=== PATIENT | female | born 1970 | race Hispanic/Latino ===

== ENCOUNTER 2018-08-18 18:23 | Emergency (ER) | payer OTHER ==
[2018-08-18] MEDS ORDERED: KETOROLAC TROMETHAMINE 60 MG/2 ML VIAL ONE (19:28)
== END 2018-08-18 19:45 | disposition home or self-care (01) ==
LOC: EDH 18:23
DX: M94.0 Chondrocostal junction syndrome [Tietze] (principal); I10 Essential (primary) hypertension; F41.9 Anxiety disorder, unspecified; F31.9 Bipolar disorder, unspecified
CPT/HCPCS: 71045; 96372; 99283; J1885

== ENCOUNTER 2019-06-06 17:58 | Emergency (ER) | payer SELFPAY ==
[2019-06-06] MEDS ORDERED: DIAZEPAM 5 MG TABLET ONE (18:53)
[2019-06-06] MEDS ORDERED: KETOROLAC TROMETHAMINE 60 MG/2 ML VIAL ONE (18:53)
[2019-06-06] MEDS ORDERED: LIDOCAINE 5% TOPICAL PATCH TP ONE (18:53)
== END 2019-06-06 19:47 | disposition home or self-care (01) ==
LOC: EDH 17:58
DX: M54.16 Radiculopathy, lumbar region (principal); F41.9 Anxiety disorder, unspecified; F31.9 Bipolar disorder, unspecified; I10 Essential (primary) hypertension; G43.909 Migraine, unspecified, not intractable, without status migrainosus; M19.90 Unspecified osteoarthritis, unspecified site; Z87.891 Personal history of nicotine dependence
CPT/HCPCS: 96372; 99283; J1885

== ENCOUNTER 2019-06-24 18:49 | Emergency (ER) | payer SELFPAY ==
[2019-06-24 20:08] LABS: APPEARANCE,URINE Clear (CLEAR); BILIRUBIN,URINE Negative (NEGATIVE); COLOR,URINE Yellow (YELLOW); GLUCOSE, URINE (UA) Negative (NEGATIVE); KETONES,URINE Negative (NEGATIVE); LEUKOCYTE ESTERASE ,URINE Small (NEGATIVE); NITRATE,URINE Negative (NEGATIVE); OCCULT BLOOD,URINE Negative (NEGATIVE); PROTEIN,URINE Negative (NEGATIVE)
[2019-06-24] MEDS ORDERED: SODIUM CHLORIDE 0.9% 1000ML 1,000 ML IV ONE (20:08)
[2019-06-24] MEDS ORDERED: ASPIRIN 325 MG TABLET ONE (20:10)
[2019-06-24] MEDS ORDERED: DiphenhydrAMINE HCL 50 MG/ML VIAL ONE (20:10)
[2019-06-24 20:11] LABS: HCG,QUAL RESULT NEGATIVE (NEGATIVE)
[2019-06-24 20:20] LABS: BASOPHILS % (AUTO) 0.8 % (0.0-5.0); EOSINOPHILS % (AUTO) 3.1 % (0.0-8.0); HEMATOCRIT 42.8 % (36-48); LYMPHOCYTES % (AUTO) 14.8 % (21.0-51.0); MEAN CORPUSCULAR HEMOGLOBIN 29.9 pg (27.0-33.0); MEAN CORPUSCULAR HGB CONC 33.8 g/dL (32.0-36.0); MEAN CORPUSCULAR VOLUME 88.6 fL (79-99); MONOCYTES % (AUTO) 8.2 % (3.0-13.0); NEUTROPHILS % (AUTO) 73.1 % (40.0-77.0); PLATELET COUNT (AUTO) 306 K/uL (130-400); RED BLOOD CELL COUNT(AUTO) 4.83 MIL/uL (4.00-5.50); RED CELL DISTRIBUTION WIDTH 13.3 % (11.0-15.5); WHITE BLOOD COUNT (AUTO) 11.1 K/uL (4.8-10.8)
[2019-06-24 20:24] LABS: BACTERIA,URINE Few /HPF (None Seen); MUCUS,URINE Few LPF (None Seen)
[2019-06-24 20:26] LABS: CARBON DIOXIDE 26 mmol/L (21-32); CHLORIDE 105 mmol/L (101-111); CREATININE 0.7 mg/dL (0.5-1.5); GLOMERULAR FILTR. RATE CALC 95 mL/min (>60); GLUCOSE,RANDOM 135 mg/dL (70-105); SODIUM SERUM 140 mmol/L (136-145); UREA NITROGEN, BLOOD 12 mg/dL (7-18)
[2019-06-24 20:30] LABS: INR 0.94 (0.85-1.15); PROTHROMBIN TIME 9.9 SEC (9.6-11.6)
[2019-06-24 20:31] LABS: ALANINE AMINOTRANSFERASE 71 U/L (12-78); ALBUMIN 3.2 g/dL (3.5-5.0); ASPARTATE AMINOTRANSFERASE 54 U/L (10-37); BILIRUBIN,TOTAL 0.4 mg/dL (0.2-1.0); CREATINE KINASE, TOTAL 278 U/L (21-232)
[2019-06-24 20:49] LABS: BILIRUBIN,DIRECT < 0.1 mg/dL (0.0-0.3)
[2019-06-24 20:55] LABS: B-TYPE NATRIURETIC PEPTIDE 8 pg/mL (0-100)
== END 2019-06-25 00:45 | disposition home or self-care (01) ==
LOC: EDH 18:49
DX: R07.89 Other chest pain (principal); R42 Dizziness and giddiness; R00.2 Palpitations
CPT/HCPCS: 36415; 71046; 80048; 80076; 81001; 81025; 82550 ×2; 83880; 84484 ×2; 85025; 85610; 85730; 93005 ×2; 96361; 96374; 99285; J1200; J7030

== ENCOUNTER 2019-07-17 20:15 | Emergency (ER) | payer SELFPAY ==
[2019-07-17] MEDS ORDERED: DEXAMETHASONE SOD PHOSPHATE 10MG/ML 1ML VIAL ONE (21:18)
[2019-07-17] MEDS ORDERED: ORPHENADRINE CITRATE 30 MG/ML ML ONE (21:18)
[2019-07-17] MEDS ORDERED: KETOROLAC TROMETHAMINE 60 MG/2 ML VIAL ONE (21:19)
[2019-07-17] MEDS ORDERED: DIAZEPAM 5 MG TABLET ONE (22:23)
[2019-07-17] MEDS ORDERED: LIDOCAINE 5% TOPICAL PATCH TP ONE (22:54)
== END 2019-07-18 00:09 | disposition home or self-care (01) ==
LOC: EDH 20:15
DX: M54.32 Sciatica, left side (principal); F41.9 Anxiety disorder, unspecified; F31.9 Bipolar disorder, unspecified; I10 Essential (primary) hypertension; G43.909 Migraine, unspecified, not intractable, without status migrainosus; M06.9 Rheumatoid arthritis, unspecified; Z72.0 Tobacco use
CPT/HCPCS: 96372 ×3; 99284; J1100; J1885; J2360

== ENCOUNTER 2019-09-13 10:02 | Emergency (ER) | payer OTHER ==
[2019-09-13 11:08] LABS: APPEARANCE,URINE Cloudy (CLEAR); BILIRUBIN,URINE Negative (NEGATIVE); COLOR,URINE Dark Yellow (YELLOW); GLUCOSE, URINE (UA) Negative (NEGATIVE); KETONES,URINE Negative (NEGATIVE); LEUKOCYTE ESTERASE ,URINE Negative (NEGATIVE); NITRATE,URINE Negative (NEGATIVE); OCCULT BLOOD,URINE Negative (NEGATIVE); PH,URINE 5.5 (5.0-8.0); PROTEIN,URINE Negative (NEGATIVE)
[2019-09-13] MEDS ORDERED: ORPHENADRINE CITRATE 30 MG/ML ML ONE (11:27)
[2019-09-13] MEDS ORDERED: KETOROLAC TROMETHAMINE 30MG/ML ONE (11:27)
[2019-09-13] MEDS ORDERED: LIDOCAINE 5% TOPICAL PATCH TP ONE (11:35)
[2019-09-13 11:43] LABS: BACTERIA,URINE Rare /HPF (None Seen); MUCUS,URINE Few LPF (None Seen); RBC,URINE 0-1 /HPF (0-1); SQUAMOUS EPITHELIAL CELL,UR Rare /HPF (0-2); WBC,URINE 0-1 /HPF (0-1)
== END 2019-09-13 12:15 | disposition home or self-care (01) ==
LOC: EDH 10:02
DX: M54.5 Low back pain (principal); F41.9 Anxiety disorder, unspecified; F32.9 Major depressive disorder, single episode, unspecified; I10 Essential (primary) hypertension; G43.909 Migraine, unspecified, not intractable, without status migrainosus; M19.90 Unspecified osteoarthritis, unspecified site; M06.9 Rheumatoid arthritis, unspecified; Z72.0 Tobacco use; Z98.890 Other specified postprocedural states
CPT/HCPCS: 81001; 96372 ×2; 99284; J1885; J2360

== ENCOUNTER 2021-03-16 14:28 | Inpatient (IN) | payer OTHER ==
[~2021-03-16] VITALS: Ht 149.9 cm; Wt 107.2 kg
[2021-03-16 15:14] VITALS: BP 124/81
[2021-03-16 16:11] LABS: BASOPHILS % (AUTO) 0.2 % (0.0-5.0); EOSINOPHILS % (AUTO) 1.1 % (0.0-8.0); LYMPHOCYTES % (AUTO) 23.5 % (21.0-51.0); MEAN CORPUSCULAR HEMOGLOBIN 29.9 pg (27.0-33.0); MEAN CORPUSCULAR HGB CONC 33.8 g/dL (32.0-36.0); MEAN CORPUSCULAR VOLUME 88.4 fL (79-99); MONOCYTES % (AUTO) 8.3 % (3.0-13.0); NEUTROPHILS % (AUTO) 66.7 % (40.0-77.0); PLATELET COUNT (AUTO) 227 K/uL (130-400); RED BLOOD CELL COUNT(AUTO) 5.09 MIL/uL (4.00-5.50); WHITE BLOOD COUNT (AUTO) 6.1 K/uL (4.8-10.8)
[2021-03-16 16:19] LABS: ABG BASE EXCESS 1.1 mmol/L (-2.0-3.0); ABG HCO3 24.7 mmol/L (21.0-28.0); ABG OXYGEN SATURATION 87.7 % (95.0-99.0); ABG PCO2 36 mmHg (32-45)
[2021-03-16 16:20] LABS: CREATININE 0.9 mg/dL (0.5-1.5); POTASSIUM 3.9 mmol/L (3.5-5.1)
[2021-03-16 16:25] LABS: ALBUMIN 2.9 g/dL (3.5-5.0); BILIRUBIN,TOTAL 0.5 mg/dL (0.2-1.0); TOTAL PROTEIN, SERUM 7.9 g/dL (6.0-8.3)
[2021-03-16 16:35] LABS: B-TYPE NATRIURETIC PEPTIDE < 5 pg/mL (0-100)
[2021-03-16] MEDS ORDERED: CEFTRIAXONE 1G VIAL IVP ONE (17:00)
[2021-03-16] MEDS ORDERED: ALBUTEROL INHALER 90MCG/INH IH PRN (17:00)
[2021-03-16] MEDS: BUDESONIDE 0.5 MG/2 ML INH IH SCH (17:20)
[2021-03-16] MEDS ORDERED: ACETAMINOPHEN 325 MG TAB PO PRN ×2 (17:30)
[2021-03-16] MEDS ORDERED: ONDANSETRON 4MG INJ IV PRN (17:30)
[2021-03-16] MEDS ORDERED: PHARMACY COMMUNICATION**REMDESIVIR ORDER MISC SCH (17:30)
[2021-03-16] MEDS ORDERED: LACTULOSE 20 GM/30 ML UDCUP PO PRN (17:30)
[2021-03-16 17:37] LABS: INR 0.98 (0.85-1.15); PROTHROMBIN TIME 10.7 SEC (9.6-11.6)
[2021-03-16] MEDS: DEXAMETHASONE SOD PHOSPHATE 4 MG/ML 1ML VIAL IVP SCH (17:58)
[2021-03-16 17:59] VITALS: BP 145/54
[2021-03-16 18:13] LABS: CHOLESTEROL 101 mg/dL (<200); HDL CHOLESTEROL 26 mg/dL (35-85); LACTATE DEHYDROGENASE 300 U/L (81-234); LDL DIRECT 60 mg/dL (0-99); TRIGLYCERIDES 90 mg/dL (30-200)
[2021-03-16 20:12] VITALS: BP 121/70
[2021-03-16] MEDS: ALBUTEROL INHALER 90MCG/INH IH PRN (20:53)
[2021-03-16 22:39] VITALS: BP 138/72
[2021-03-17 02:36] VITALS: BP 118/67
[2021-03-17 05:23] VITALS: BP 123/57
[2021-03-17] MEDS: ALBUTEROL INHALER 90MCG/INH IH PRN (05:53)
[2021-03-17] MEDS: BUDESONIDE 0.5 MG/2 ML INH IH SCH ×2 (05:53→18:00)
[2021-03-17 06:34] LABS: ALBUMIN 2.8 g/dL (3.5-5.0); BILIRUBIN,TOTAL 0.5 mg/dL (0.2-1.0); CREATININE 0.9 mg/dL (0.5-1.5); CRP QUANTITATIVE 131.4 mg/L (0.00-9.0); TOTAL PROTEIN, SERUM 7.8 g/dL (6.0-8.3)
[2021-03-17] MEDS: ENOXAPARIN SODIUM 40 MG/0.4 ML SYRINGE SQ SCH (07:59)
[2021-03-17 08:13] VITALS: BP 131/86
[2021-03-17] MEDS ORDERED: REMDESIVIR (EUA) 520 200 MG in 0.9% NACL 250ML 250 ML IV SCH (11:30)
[2021-03-17] MEDS ORDERED: COMPOUND IV REFRIGERATED 1 EACH IVSOLN MISC PRN (11:30)
[2021-03-17 12:15] VITALS: BP 132/84
[2021-03-17 16:57] VITALS: BP 121/82
[2021-03-17] MEDS: DEXAMETHASONE SOD PHOSPHATE 4 MG/ML 1ML VIAL IVP SCH (17:30)
[2021-03-17 18:19] LABS: BASOPHILS % (AUTO) 0.3 % (0.0-5.0); EOSINOPHILS % (AUTO) 0.3 % (0.0-8.0); HEMATOCRIT 42.2 % (36-48); LYMPHOCYTES % (AUTO) 18.6 % (21.0-51.0); MEAN CORPUSCULAR HEMOGLOBIN 29.4 pg (27.0-33.0); MEAN CORPUSCULAR HGB CONC 33.4 g/dL (32.0-36.0); MEAN CORPUSCULAR VOLUME 87.9 fL (79-99); MONOCYTES % (AUTO) 8.7 % (3.0-13.0); NEUTROPHILS % (AUTO) 71.7 % (40.0-77.0); PLATELET COUNT (AUTO) 266 K/uL (130-400); RED CELL DISTRIBUTION WIDTH 12.9 % (11.0-15.5); WHITE BLOOD COUNT (AUTO) 7.6 K/uL (4.8-10.8)
[2021-03-17 19:56] VITALS: BP 125/82
[2021-03-18] VITALS (7 sets, daily range): BP systolic 120–148; BP diastolic 74–93
[2021-03-18] MEDS: BUDESONIDE 0.5 MG/2 ML INH IH SCH ×2 (06:00→18:00)
[2021-03-18] MEDS: REMDESIVIR LABS MISC SCH (06:00)
[2021-03-18 06:19] LABS: HEMATOCRIT 42.2 % (36-48); MEAN CORPUSCULAR HEMOGLOBIN 29.7 pg (27.0-33.0); MEAN CORPUSCULAR HGB CONC 32.9 g/dL (32.0-36.0); MEAN CORPUSCULAR VOLUME 90.2 fL (79-99); RED BLOOD CELL COUNT(AUTO) 4.68 MIL/uL (4.00-5.50)
[2021-03-18 07:12] LABS: ALBUMIN 2.6 g/dL (3.5-5.0); BILIRUBIN,TOTAL 0.3 mg/dL (0.2-1.0); CREATININE 0.8 mg/dL (0.5-1.5); CRP QUANTITATIVE 61.2 mg/L (0.00-9.0); POTASSIUM 4.2 mmol/L (3.5-5.1); TOTAL PROTEIN, SERUM 7.2 g/dL (6.0-8.3)
[2021-03-18] MEDS: ENOXAPARIN SODIUM 40 MG/0.4 ML SYRINGE SQ SCH ×2 (08:51→22:26)
[2021-03-18] MEDS ORDERED: IOHEXOL-350 75 ML VIAL IV ONE (09:32)
[2021-03-18] MEDS: BARICITINIB (EUA) 2 MG TABLET PO SCH (10:45)
[2021-03-18] MEDS ORDERED: PHARMACY COMMUNICATION MISC SCH (11:00)
[2021-03-18] MEDS: REMDESIVIR (EUA) 520 100 MG in 0.9% NACL 250ML 250 ML IV SCH (13:11)
[2021-03-18 14:31] LABS: HEMOGLOBIN A1C 7.1 % (4.0-6.0)
[2021-03-18] MEDS: INSULIN HUMULIN R 100 UNIT/ML 3ML SQ SCH ×2 (16:30→21:00)
[2021-03-18] MEDS: DEXAMETHASONE SOD PHOSPHATE 4 MG/ML 1ML VIAL IVP SCH (17:54)
[2021-03-18 18:10] LABS: BASOPHILS % (AUTO) 0.3 % (0.0-5.0); EOSINOPHILS % (AUTO) 0.5 % (0.0-8.0); HEMATOCRIT 42.3 % (36-48); LYMPHOCYTES % (AUTO) 26.5 % (21.0-51.0); MEAN CORPUSCULAR HEMOGLOBIN 29.9 pg (27.0-33.0); MEAN CORPUSCULAR HGB CONC 32.9 g/dL (32.0-36.0); MONOCYTES % (AUTO) 7.8 % (3.0-13.0); NEUTROPHILS % (AUTO) 64.5 % (40.0-77.0); PLATELET COUNT (AUTO) 272 K/uL (130-400); RED BLOOD CELL COUNT(AUTO) 4.65 MIL/uL (4.00-5.50); RED CELL DISTRIBUTION WIDTH 13.1 % (11.0-15.5); WHITE BLOOD COUNT (AUTO) 7.7 K/uL (4.8-10.8)
[2021-03-19 00:12] VITALS: BP 136/88
[2021-03-19 04:08] VITALS: BP 132/87
[2021-03-19 04:53] LABS: BASOPHILS % (AUTO) 0.4 % (0.0-5.0); HEMATOCRIT 40.8 % (36-48); LYMPHOCYTES % (AUTO) 18.3 % (21.0-51.0); MEAN CORPUSCULAR HEMOGLOBIN 29.6 pg (27.0-33.0); MEAN CORPUSCULAR HGB CONC 32.6 g/dL (32.0-36.0); MEAN CORPUSCULAR VOLUME 90.9 fL (79-99); MONOCYTES % (AUTO) 5.5 % (3.0-13.0); NEUTROPHILS % (AUTO) 75.4 % (40.0-77.0); PLATELET COUNT (AUTO) 253 K/uL (130-400); RED BLOOD CELL COUNT(AUTO) 4.49 MIL/uL (4.00-5.50); WHITE BLOOD COUNT (AUTO) 5.1 K/uL (4.8-10.8)
[2021-03-19 05:20] LABS: ALBUMIN 2.6 g/dL (3.5-5.0); BILIRUBIN,TOTAL 0.3 mg/dL (0.2-1.0); CREATININE 0.8 mg/dL (0.5-1.5); CRP QUANTITATIVE 35.2 mg/L (0.00-9.0); POTASSIUM 4.4 mmol/L (3.5-5.1); TOTAL PROTEIN, SERUM 6.8 g/dL (6.0-8.3)
[2021-03-19] MEDS: REMDESIVIR LABS MISC SCH (05:45)
[2021-03-19] MEDS: INSULIN HUMULIN R 100 UNIT/ML 3ML SQ SCH ×4 (05:46→21:10)
[2021-03-19] MEDS: BUDESONIDE 0.5 MG/2 ML INH IH SCH ×2 (06:00→18:00)
[2021-03-19 07:47] VITALS: BP 136/89
[2021-03-19] MEDS: BARICITINIB (EUA) 2 MG TABLET PO SCH (09:27)
[2021-03-19] MEDS: ENOXAPARIN SODIUM 40 MG/0.4 ML SYRINGE SQ SCH ×2 (09:27→21:09)
[2021-03-19 11:32] VITALS: BP 126/79
[2021-03-19] MEDS: REMDESIVIR (EUA) 520 100 MG in 0.9% NACL 250ML 250 ML IV SCH (14:02)
[2021-03-19 16:29] VITALS: BP 144/95
[2021-03-19] MEDS: DEXAMETHASONE SOD PHOSPHATE 4 MG/ML 1ML VIAL IVP SCH (17:48)
[2021-03-19 20:32] VITALS: BP 141/88
[2021-03-20] VITALS (8 sets, daily range): BP systolic 118–151; BP diastolic 63–105
[2021-03-20] MEDS: REMDESIVIR LABS MISC SCH (05:45)
[2021-03-20] MEDS: BUDESONIDE 0.5 MG/2 ML INH IH SCH (06:12)
[2021-03-20] MEDS: INSULIN HUMULIN R 100 UNIT/ML 3ML SQ SCH ×4 (06:13→21:58)
[2021-03-20] MEDS: BARICITINIB (EUA) 2 MG TABLET PO SCH (09:14)
[2021-03-20] MEDS: ENOXAPARIN SODIUM 40 MG/0.4 ML SYRINGE SQ SCH ×2 (09:14→20:57)
[2021-03-20 11:32] LABS: BASOPHILS % (AUTO) 0.3 % (0.0-5.0); EOSINOPHILS % (AUTO) 0.4 % (0.0-8.0); HEMATOCRIT 43.8 % (36-48); LYMPHOCYTES % (AUTO) 19.4 % (21.0-51.0); MEAN CORPUSCULAR HEMOGLOBIN 29.3 pg (27.0-33.0); MEAN CORPUSCULAR HGB CONC 32.6 g/dL (32.0-36.0); MEAN CORPUSCULAR VOLUME 89.8 fL (79-99); MONOCYTES % (AUTO) 8.6 % (3.0-13.0); PLATELET COUNT (AUTO) 312 K/uL (130-400); RED BLOOD CELL COUNT(AUTO) 4.88 MIL/uL (4.00-5.50); RED CELL DISTRIBUTION WIDTH 12.8 % (11.0-15.5); WHITE BLOOD COUNT (AUTO) 7.4 K/uL (4.8-10.8)
[2021-03-20 11:46] LABS: ALBUMIN 2.8 g/dL (3.5-5.0); BILIRUBIN,TOTAL 0.4 mg/dL (0.2-1.0); CREATININE 0.8 mg/dL (0.5-1.5); CRP QUANTITATIVE 18.7 mg/L (0.00-9.0); POTASSIUM 3.4 mmol/L (3.5-5.1); TOTAL PROTEIN, SERUM 7.4 g/dL (6.0-8.3)
[2021-03-20] MEDS: REMDESIVIR (EUA) 520 100 MG in 0.9% NACL 250ML 250 ML IV SCH (14:34)
[2021-03-20] MEDS: DEXAMETHASONE SOD PHOSPHATE 4 MG/ML 1ML VIAL IVP SCH (18:05)
[2021-03-20] MEDS: ALBUTEROL INHALER 90MCG/INH IH PRN (21:00)
[2021-03-21 03:54] VITALS: BP 142/87
[2021-03-21 05:24] LABS: ALBUMIN 2.6 g/dL (3.5-5.0); BILIRUBIN,DIRECT 0.2 mg/dL (0.0-0.3); BILIRUBIN,TOTAL 0.4 mg/dL (0.2-1.0); CREATININE 0.6 mg/dL (0.5-1.5); TOTAL PROTEIN, SERUM 6.5 g/dL (6.0-8.3)
[2021-03-21 06:24] LABS: BASOPHILS % (AUTO) 0.2 % (0.0-5.0); EOSINOPHILS % (AUTO) 1.6 % (0.0-8.0); LYMPHOCYTES % (AUTO) 14.1 % (21.0-51.0); MEAN CORPUSCULAR HEMOGLOBIN 29.4 pg (27.0-33.0); MEAN CORPUSCULAR HGB CONC 32.8 g/dL (32.0-36.0); MEAN CORPUSCULAR VOLUME 89.7 fL (79-99); MONOCYTES % (AUTO) 5.6 % (3.0-13.0); NEUTROPHILS % (AUTO) 78.2 % (40.0-77.0); PLATELET COUNT (AUTO) 294 K/uL (130-400); RED BLOOD CELL COUNT(AUTO) 4.46 MIL/uL (4.00-5.50); RED CELL DISTRIBUTION WIDTH 12.8 % (11.0-15.5); WHITE BLOOD COUNT (AUTO) 6.1 K/uL (4.8-10.8)
[2021-03-21 06:28] LABS: CREATININE 0.6 mg/dL (0.5-1.5); CRP QUANTITATIVE 13.6 mg/L (0.00-9.0); POTASSIUM 4.4 mmol/L (3.5-5.1)
[2021-03-21] MEDS: INSULIN HUMULIN R 100 UNIT/ML 3ML SQ SCH ×2 (06:28→11:30)
[2021-03-21] MEDS: REMDESIVIR LABS MISC SCH (06:29)
[2021-03-21] MEDS: ENOXAPARIN SODIUM 40 MG/0.4 ML SYRINGE SQ SCH (09:00)
[2021-03-21] MEDS: BARICITINIB (EUA) 2 MG TABLET PO SCH (09:00)
[2021-03-21] MEDS ORDERED: DEXA6TAB PO (12:46)
[2021-03-21] MEDS ORDERED: APIX2.5T PO (12:46)
[2021-03-21] MEDS ORDERED: METF-444 PO (12:46)
[2021-03-21] MEDS ORDERED: PANT40TA PO (12:47)
[2021-03-21] MEDS ORDERED: AMLO-257 PO (12:52)
[2021-03-21] MEDS ORDERED: AMLODIPINE 5 MG TAB PO ONE (13:00)
[2021-03-21] MEDS: REMDESIVIR (EUA) 520 100 MG in 0.9% NACL 250ML 250 ML IV SCH (14:19)
== END 2021-03-21 17:32 | disposition home or self-care (01) | DRG 177 ==
LOC: EDH 14:28 → OBSVTOIN 14:29 → EDHIP 14:29 → UNDOADMOB 17:11 → EDHIP 17:11 → 4BH 03-18 20:55
PROVIDERS: ADMIT Hospitalist; ATTEND Hospitalist
PROC: XW033E5 Introduction of Remdesivir Anti-infective into Peripheral Vein, Percutaneous Approach, New Technology Group 5 (ICD-10-PCS; principal; 2021-03-17)
DX: U07.1 COVID-19 (principal); J12.82 Pneumonia due to coronavirus disease 2019; J96.01 Acute respiratory failure with hypoxia; Z68.42 Body mass index [BMI] 45.0-49.9, adult; I11.9 Hypertensive heart disease without heart failure; E11.65 Type 2 diabetes mellitus with hyperglycemia; E66.01 Morbid (severe) obesity due to excess calories; J42 Unspecified chronic bronchitis; R79.89 Other specified abnormal findings of blood chemistry; G47.33 Obstructive sleep apnea (adult) (pediatric)
CPT/HCPCS: 36415; 36600; 71045; 71275; 80048; 80053; 80061; 80076; 82550; 82565; 82728; 82803; 82948; 83036; 83605; 83615; 83880; 84145; 84484; 85025; 85027; 85378; 85610; 85730; 86140; 87040; 87635; 87804; 93005; 94760; C9803; G0378; J0696; J1100; J1650; J1815; J7050; Q9967

== ENCOUNTER 2021-06-03 22:47 | Emergency (ER) | payer OTHER ==
[~2021-06-03] VITALS: Ht 149.9 cm; Wt 109.8 kg
[~2021-06-03 22:47] MED LIST: APIX2.5T PO; DEXA6TAB PO; METF-444 PO; PANT40TA PO
[2021-06-03] MEDS ORDERED: SOLU-MEDROL 125MG VIAL IVP ONE (23:30)
[2021-06-03 23:50] LABS: BASOPHILS % (AUTO) 0.8 % (0.0-5.0); EOSINOPHILS % (AUTO) 3.4 % (0.0-8.0); HEMATOCRIT 40.1 % (36-48); LYMPHOCYTES % (AUTO) 24.2 % (21.0-51.0); MEAN CORPUSCULAR HEMOGLOBIN 31.1 pg (27.0-33.0); MEAN CORPUSCULAR HGB CONC 33.9 g/dL (32.0-36.0); MEAN CORPUSCULAR VOLUME 91.6 fL (79-99); NEUTROPHILS % (AUTO) 63.3 % (40.0-77.0); PLATELET COUNT (AUTO) 254 K/uL (130-400); RED BLOOD CELL COUNT(AUTO) 4.38 MIL/uL (4.00-5.50); RED CELL DISTRIBUTION WIDTH 13.1 % (11.0-15.5); WHITE BLOOD COUNT (AUTO) 9.8 K/uL (4.8-10.8)
[2021-06-04 00:13] LABS: ALBUMIN 3.2 g/dL (3.5-5.0); BILIRUBIN,TOTAL 0.4 mg/dL (0.2-1.0); CREATININE 0.7 mg/dL (0.5-1.5); POTASSIUM 4.8 mmol/L (3.5-5.1); TOTAL PROTEIN, SERUM 7.7 g/dL (6.0-8.3)
[2021-06-04] MEDS ORDERED: METH4TAB3 PO (02:56)
[2021-06-04 03:00] VITALS: BP 158/89
== END 2021-06-04 03:08 | disposition home or self-care (01) ==
LOC: EDH 22:47
DX: M17.12 Unilateral primary osteoarthritis, left knee (principal); M79.7 Fibromyalgia; Z79.01 Long term (current) use of anticoagulants; Z79.52 Long term (current) use of systemic steroids; Z79.84 Long term (current) use of oral hypoglycemic drugs
CPT/HCPCS: 36415; 73562; 80053; 85025; 96374; 99284; J2930

== ENCOUNTER 2022-01-29 20:45 | Emergency (ER) | payer OTHER ==
[~2022-01-29] VITALS: Ht 149.9 cm; Wt 110.2 kg
[~2022-01-29 20:45] MED LIST changes: +METH4TAB3 PO
[2022-01-29] MEDS ORDERED: ACETAMINOPHEN 500 MG TABLET PO ONE (21:30)
[2022-01-29] MEDS ORDERED: ACET-2247 PO (21:41)
[2022-01-29 22:06] VITALS: BP 128/64
== END 2022-01-29 22:04 | disposition home or self-care (01) ==
LOC: EDH 20:45
DX: J02.8 Acute pharyngitis due to other specified organisms (principal); Z20.822 Contact with and (suspected) exposure to COVID-19; I10 Essential (primary) hypertension; M79.7 Fibromyalgia; Z79.899 Other long term (current) drug therapy; Z79.01 Long term (current) use of anticoagulants; Z98.890 Other specified postprocedural states
CPT/HCPCS: 87635; 87804 ×2; 87880; 99283; C9803

== ENCOUNTER 2022-10-24 17:44 | Emergency (ER) | payer SELFPAY ==
[~2022-10-24] VITALS: Ht 152.4 cm; Wt 158.8 kg
[~2022-10-24 17:44] MED LIST changes: +ACET-2247 PO
[2022-10-24] MEDS ORDERED: LACTATED RINGERS 1000ML 1,000 ML IV ONE (18:00)
[2022-10-24 18:15] LABS: CREATININE 0.8 mg/dL (0.5-1.5); POTASSIUM 4.8 mmol/L (3.5-5.1)
[2022-10-24 18:20] LABS: BASOPHILS % (AUTO) 0.6 % (0.0-5.0); EOSINOPHILS % (AUTO) 2.6 % (0.0-8.0); HEMATOCRIT 45.1 % (36-48); LYMPHOCYTES % (AUTO) 21.3 % (21.0-51.0); MEAN CORPUSCULAR HEMOGLOBIN 29.4 pg (27.0-33.0); MEAN CORPUSCULAR HGB CONC 34.4 g/dL (32.0-36.0); MEAN CORPUSCULAR VOLUME 85.6 fL (79-99); MONOCYTES % (AUTO) 6.6 % (3.0-13.0); NEUTROPHILS % (AUTO) 68.5 % (40.0-77.0); PLATELET COUNT (AUTO) 278 K/uL (130-400); RED BLOOD CELL COUNT(AUTO) 5.27 MIL/uL (4.00-5.50); WHITE BLOOD COUNT (AUTO) 10.7 K/uL (4.8-10.8)
[2022-10-24] MEDS ORDERED: SODIUM CHLORIDE 3% 500 ML ONE (18:23)
[2022-10-24 18:24] LABS: ALBUMIN 3.4 g/dL (3.5-5.0); TOTAL PROTEIN, SERUM 8.2 g/dL (6.0-8.3)
[2022-10-24] MEDS ORDERED: SODIUM CHLORIDE 3% 500 ML IV SCH (18:30)
[2022-10-24 18:38] LABS: INR 0.93 (0.85-1.15); PROTHROMBIN TIME 10.2 SEC (9.6-11.6)
[2022-10-24 18:53] LABS: APPEARANCE,URINE CLEAR (CLEAR); BILIRUBIN,URINE NEGATIVE (NEGATIVE); COLOR,URINE YELLOW (YELLOW); GLUCOSE, URINE (UA) 500 mg/dL (NEGATIVE); KETONES,URINE 5 mg/dL (NEGATIVE); LEUKOCYTE ESTERASE ,URINE NEGATIVE Leu/uL (NEGATIVE); NITRATE,URINE NEGATIVE (NEGATIVE); OCCULT BLOOD,URINE NEGATIVE (NEGATIVE); PROTEIN,URINE 50 mg/dL (NEGATIVE)
[2022-10-24] MEDS ORDERED: NICARDIPINE 25MG INJ IV ONE (18:54)
[2022-10-24 18:58] LABS: AMPHET/METH SCREEN,URINE NEGATIVE (NEGATIVE); BARBITURATE SCREEN, URINE NEGATIVE (NEGATIVE); BENZODIAZEPINES SCREEN,URINE NEGATIVE (NEGATIVE); CANNABINOID SCREEN,URINE NEGATIVE (NEGATIVE); COCAINE SCREEN,URINE NEGATIVE (NEGATIVE); MUCUS,URINE MANY LPF (None Seen); OPIATE SCREEN,URINE NEGATIVE (NEGATIVE); PHENCYCLIDINE SCREEN,URINE NEGATIVE (NEGATIVE); RBC,URINE 0-1 /HPF (0-1); SQUAMOUS EPITHELIAL CELL,UR RARE /HPF (0-2)
[2022-10-24] MEDS ORDERED: NICARDIPINE 25MG INJ 25 MG in 0.9% NACL 250ML 240 ML IV SCH (19:00)
[2022-10-24 19:10] LABS: B-TYPE NATRIURETIC PEPTIDE 10 pg/mL (0-100)
[2022-10-24] MEDS ORDERED: LABETALOL 20MG SYG IV ONE ×2 (19:26→20:00)
[2022-10-24 20:08] VITALS: BP 130/85
== END 2022-10-24 19:40 | disposition home or self-care (01) ==
LOC: EDH 17:44
DX: I61.8 Other nontraumatic intracerebral hemorrhage (principal); R53.1 Weakness; I10 Essential (primary) hypertension; Z20.822 Contact with and (suspected) exposure to COVID-19; Z79.899 Other long term (current) drug therapy; Z79.84 Long term (current) use of oral hypoglycemic drugs; Z98.890 Other specified postprocedural states
CPT/HCPCS: 99291; 96374; 70450; 71045; 87635; 96361; 82550; 83721; 84484; 80053; 83880; 80305; 85025; 85610; 85730; 36415; 93005; 81001; C9803; J7120; J3490 ×4; J7050